=== PATIENT | male | born 1950 | race Caucasian/White ===

== ENCOUNTER → 2023-05-08 07:33 | Outpatient (CLI) | payer MEDICARE, OTHER, SELFPAY ==
--- NOTE | 2023-05-08 07:36 | DI.RAD.S_ITS ---
PROCEDURE: XR LUMBAR SPINE MIN 4V INDICATIONS: LOW BACK PAIN TECHNIQUE: 5 views of the lumbar spine were acquired, including bilateral oblique views. COMPARISON: Outside Facility, RG, XR L-SPINE 2-3V, 04/14/2017, 10:09. FINDINGS: Bones: 5 nonrib-bearing vertebrae are present. There is mild rightward curvature. Posterior fusion is present at L5-S1. All hardware is intact. Multilevel disc space and foraminal narrowing most severe at L5-S1. Compression deformity is present at T12, new compared to 2017. No suspicious bony lesions. Soft tissues: Overlying bowel gas pattern is normal. No suspicious soft tissue calcifications. Oblique images: No pars defects. IMPRESSION: Multilevel degenerative changes, most severe at L5-S1. Dictated by: Zahra George M.D. on 05/08/2023 at 11:46 Approved by: Zahra George M.D. on 05/08/2023 at 11:56
== END ==
PROVIDERS: PCP Family Medicine; Referring Provider Anesthesiology; Visit Provider Anesthesiology
DX: M96.1 Postlaminectomy syndrome, not elsewhere classified (principal); M47.27 Other spondylosis with radiculopathy, lumbosacral region; M47.26 Other spondylosis with radiculopathy, lumbar region; M54.50 Low back pain, unspecified
CPT/HCPCS: 72110; 99214

== ENCOUNTER 2023-06-28 14:20 | Outpatient (CLI) | payer MEDICARE, OTHER, SELFPAY ==
[2023-06-28] VITALS (8 sets, daily range): BP systolic 122–156; BP diastolic 60–75; PULSE 59–69; RESP 9–20; TEMP 36.2; O2SAT 97–100
--- NOTE | 2023-06-28 14:24 | DI.RAD.S_ITS ---
PROCEDURE: PAIN L INTERLAMINAR/CAUDAL INJ INDICATIONS: RADICULOPATHY COMPARISON: [facility], CR, XR LUMBAR SPINE MIN 4V, 05/08/2023, 7:33. FINDINGS: A caudally placed catheter is seen within the sacral canal. The position of the tip of the catheter was confirmed with injection of a small amount of iodinated contrast. IMPRESSION: Intraprocedural examination within normal limits. Dictated by: Ramone Daniels M.D. on 06/28/2023 at 17:34 Approved by: Ramone Daniels M.D. on 06/28/2023 at 17:35
[2023-06-28] MEDS: MIDAZOLAM 2 MG/2 ML VIAL 1 MG IV (14:47)
[2023-06-28] MEDS: DEXAMETHASONE 10 MG/ML VIAL INJ (14:52)
[2023-06-28] MEDS: IOPAMIDOL 15 ML VIAL 3 ML INJ (14:52)
--- NOTE | 2023-06-28 16:41 | P.PCN_ITS ---
Date/Time/Diagnoses Date of procedure: 06/28/23 Time of procedure: 15:00 Procedure Notes Physician: Gorge Mullen Total Fluoroscopy time (seconds): 12 Total sedation minutes: 13 Procedure in detail & Post-procedure care: Caudal Epidural Steroid Injection Indications: Immanuel is presenting for treatment of lumbar radiculopathy with low back and leg pain. Preoperative diagnosis: Lumbar radiculopathy Postoperative diagnosis: Same Focused Examination: Ax3 Mood and affect are normal Vital Signs: VSS ASA: 2 Consent: Following review of allergies and potential side effects/complications, including, but not necessarily limited to, infection, allergic reaction, local tissue breakdown, stroke, temporary or permanent nerve injury, paralysis, and possible , the patient indicated that they understood and agreed to proceed.? An informed consent document was signed by the patient, witnessed by a nurse and placed in the patient's chart.? Additionally, other treatment options including medications and physical therapy were reviewed with the patient. All questions were answered. Site was then marked. Anesthesia: After review of previous anesthetic history and IV conscious sedation, the patient was deemed safe to proceed with today's procedure with IV conscious sedation. IV sedation was accomplished with midazolam 1 mg administered by the RN after order by Dr. Mullen. Sedation was titrated to tom ent comfort during the course of the procedure. Patient remained responsive to all verbal commands. Position: Prone Monitoring: NIBP, Pulse oximetry, 3 lead EKG Needle used: 17 gauge Touhy with 19 gauge TheraCath Epidural Catheter Contrast: Isovue 300-M 2mL Injectate: Dexamethasone 10 mg with 1% lidocaine 2 mL and normal saline 2 mL Technique: The skin was prepped with chloraprep and then draped in a sterile fashion. Time out was performed as per protocol. Oxygen applied via NC. The entry point for entering/approaching the epidural space by a caudal approach through the sacral hiatus was identified. Skin and subcutaneous structures of the needle entry site was then infiltrated with 3 mL of lidocaine 1%. Under AP and lateral control, the needle was guided through the sacral hiatus to the S3 level. The catheter was then advanced to L4-5 using intermittent fluoroscopy. Contrast was then injected and the spread was consistent with the epidural space. There was no evidence for intravascular or intrathecal uptake. After negative aspiration, the above-mentioned injectate was then slowly administered and the needle withdrawn. The patient expressed no unusual discomfort or paresthesias during needle positioning or injection. Band-Aids applied to injection sites. EBL: less than 1 ml Complications: None Post Procedure: Patient was taken to the recovery and monitored. The patient was provided a Pain Log to continue to record the patient's response to the target- specific procedure prior to the patient's follow-up visit with the referring physician. Patient was stable upon discharge. Detailed post procedure instructions were provided. Patient was asked to call in the event of worsening pain, fever, weakness, numbness or bladder or bowel incontinence.
== END 2023-06-28 15:17 | disposition home or self-care (01) ==
PROVIDERS: PCP Family Medicine; Referring Provider Anesthesiology; Visit Provider Anesthesiology
DX: M54.16 Radiculopathy, lumbar region (principal)
CPT/HCPCS: 62323; 99152; J1100; J2250

== ENCOUNTER 2023-08-21 07:58 | Outpatient (CLI) | payer MEDICARE, OTHER, SELFPAY ==
[2023-08-21] VITALS (9 sets, daily range): BP systolic 103–155; BP diastolic 58–77; PULSE 57–67; RESP 7–18; TEMP 36.8; O2SAT 99–100
--- NOTE | 2023-08-21 07:59 | DI.RAD.S_ITS ---
PROCEDURE: PAIN L/S TRANSFORAM INJECT DURGA COMPARISON: None. INDICATIONS: SPONDYLOSIS FINDINGS: 4 intraoperative fluoroscopic images obtained. IMPRESSION: Intraprocedural fluoroscopy was provided for guidance and anatomical localization. Please see the procedure report for further details. Dictated by: Giacomo Fenton M.D. on 08/21/2023 at 10:56 Approved by: Giacomo Fenton M.D. on 08/21/2023 at 11:05
[2023-08-21] MEDS: MIDAZOLAM 2 MG/2 ML VIAL 1 MG IV (08:33)
[2023-08-21] MEDS: iopamidoL 15 ML VIAL 3 ML INJ (08:36)
[2023-08-21] MEDS: DEXAMETHASONE 10 MG/ML VIAL 20 MG INJ (08:36)
--- NOTE | 2023-08-21 12:11 | P.PCN_ITS ---
Date/Time/Diagnoses Date of procedure: 08/21/23 Time of procedure: 08:30 Procedure Notes Physician: Gorge Mullen Total Fluoroscopy time (seconds): 34 Total sedation minutes: 14 Procedure in detail & Post-procedure care: Bilateral L4-5 Transforaminal Epidural Steroid Injection Indications: Immanuel is presenting for treatment of lumbar radiculopathy with low back and leg pain. Preoperative diagnosis: Lumbar radiculopathy Postoperative diagnosis: Same Focused Examination: Ax3 Mood and affect are normal Vital Signs: VSS ASA: 2 Consent: Following review of allergies and potential side effects/complications, including, but not necessarily limited to, infection, allergic reaction, local tissue breakdown, stroke, temporary or permanent nerve injury, paralysis, and possible , the patient indicated that they understood and agreed to proceed.? An informed consent document was signed by the patient, witnessed by a nurse and placed in the patient's chart.? Additionally, other treatment options including medications and physical therapy were reviewed with the patient. All questions were answered. Site was then marked. Anesthesia: After review of previous anesthetic history and IV conscious sedation, the patient was deemed safe to proceed with today's procedure with IV conscious sedation. IV sedation was accomplished with midazolam 1 mg administered by the RN after order by Dr. Mullen. Sedation was titrated to patient comfort during the course of the procedure. Patient remained responsive to all verbal commands. Position: Prone Monitoring: NIBP, Pulse oximetry, 3 lead EKG Needle used: 22G 3.5 inch spinal needle Contrast: Isovue 300M Injectate: 10 mg Dexamethasone mixed with 1% lidocaine 1 ml and normal saline 1 mL Technique: The skin was prepped with chloraprep and draped in a sterile fashion. Time out was performed as per protocol. Oxygen applied via NC. Skin and subcutaneous structures of the needle entry site were infiltrated with 3mL of lidocaine 1%. Under fluoroscopic guidance, using an ipsilateral oblique view,?a 22 gauge 3.5 inch needle was advanced to the base of the right L4?pedicle.? The needle was advanced to the superio-posterior aspect of the neural foramen under lateral view.? Oblique and AP views were rechecked. No paresthesias noted by the patient during needle placement. In AP view and utilizing real-time digital subtraction fluoroscopy, 2 ml contrast was slowly injected. Epidural spread was observed without evidence for intravascular nor intrathecal uptake. Contrast spread was seen craniocaudally. The above injectate was then administered without paresthesias and the needle was subsequently withdrawn. Skin and subcutaneous structures of the needle entry site were infiltrated with 3mL of lidocaine 1%. Under fluoroscopic guidance, using an ipsilateral oblique view,?a 22 gauge 3.5 inch needle was advanced to the base of the left L4? pedicle.? The needle was advanced to the superio-posterior aspect of the neural foramen under lateral view.? Oblique and AP views were rechecked. No paresthesias noted by the patient during needle placement. In AP view and utilizing real-time digital subtraction fluoroscopy, 2 ml contrast was slowly injected. Epidural spread was observed without evidence for intravascular nor intrathecal uptake. Contrast spread was seen craniocaudally. The above injectate was then administered without paresthesias and the needle was subsequently withdrawn. Band-Aids applied to injection sites. EBL: less than 1 ml Complications: None Post Procedure: Patient was taken to the recovery and monitored. The patient was provided a Pain Log to continue to record the patient's response to the target- specific procedure prior to the patient's follow-up visit with the referring physician. Patient was stable upon discharge. Detailed post procedure instructions were provided. Patient was asked to call in the event of worsening pain, fever, weakness, numbness or bladder or bowel incontinence.
== END 2023-08-21 09:06 | disposition home or self-care (01) ==
PROVIDERS: PCP Family Medicine; Referring Provider Anesthesiology; Visit Provider Anesthesiology
DX: M54.16 Radiculopathy, lumbar region (principal)
CPT/HCPCS: 64483; 99152; J1100; J2250